=== PATIENT | female | born 1960 | race Caucasian/White ===

== ENCOUNTER 2021-05-29 12:01 | Emergency (ER) | payer OTHER, SELFPAY ==
[2021-05-29 12:13] VITALS: BMI 24.2
--- NOTE | 2021-05-29 12:17 | DI.RAD.S_ITS ---
PROCEDURE: XR TOE LT MIN 2V INDICATIONS: fall TECHNIQUE: 3 views of the left toe(s) acquired. COMPARISON: [facility], CR, XR ANKLE RT MIN 3V, 05/29/2021, 12:18. FINDINGS: Bones: There is a moderately displaced, comminuted fracture of the proximal aspect of the proximal phalanx of the great toe, with intra-articular involvement. No additional fracture dislocation can be seen. Soft tissues: No suspicious soft tissue densities. IMPRESSION: Comminuted, intra-articular fracture of the proximal aspect of the proximal phalanx of the great toe. Dictated by: Michael Brock M.D. on 05/29/2021 at 11:45 Approved by: Michael Brock M.D. on 05/29/2021 at 11:46
[2021-05-29 12:18] VITALS: BP 126/68; PULSE 69; RESP 16; TEMP 37.1; O2SAT 100; BMI 24.2
--- NOTE | 2021-05-29 12:18 | DI.RAD.S_ITS ---
PROCEDURE: XR ANKLE RT MIN 3V INDICATIONS: fall TECHNIQUE: 3 views of the ankle were acquired. COMPARISON: [facility], CR, XR TOE LT MIN 2V, 05/29/2021, 12:18. FINDINGS: Bones: There is a mildly displaced, intra-articular fracture seen involving the distal aspect of the fibula, with the fracture line seen at and below the level of the syndesmosis. The ankle mortise appears mildly widened. The syndesmosis is believed to be mildly widened. The talar dome demonstrates no chandu abnormality. Soft tissues: Soft tissue swelling is seen, particularly laterally. IMPRESSION: Distal fibular fracture, with associated widening of the syndesmosis and ankle mortise and associated soft tissue swelling. Dictated by: Michael Brock M.D. on 05/29/2021 at 11:46 Approved by: Michael Brock M.D. on 05/29/2021 at 11:48
--- NOTE | 2021-05-29 14:08 | ED_ITS ---
HPI - Extremity Injury (Lower) General Chief Complaint: Extremity Injury, Lower Stated Complaint: LT BIG TOE BREAK/RT ANKLE SPRAIN Time Seen by Provider: 05/29/21 14:07 Source: patient Mode of arrival: Family Vehicle Limitations: no limitations History of Present Illness HPI Narrative: Patient is a 61-year-old female who is here for evaluation of a left big toe pain and also right ankle discomfort. This morning the patient was going up some stairs when she tripped and fell sustaining the injuries that brought her into the emergency department today. She was unable to ambulate afterwards because of the discomfort. She arrived in a wheelchair. She reports no other injuries from the event except for her left big toe in her right ankle. No interventions prior to arrival. Related Data Previous Rx's Medication Instructions Recorded hydrocodone 5 mg-acetaminophen 325 1 tab PO Q4-6H PRN #20 tab 05/29/21 mg tablet Allergies Allergy/AdvReac Type Severity Reaction Status Date / Time No Known Drug Allergies Allergy Verified 05/29/21 12:16 Review of Systems Constitutional Constitutional: Reports system reviewed and no additional complaints, except as documented Musculoskeletal Musculoskeletal: Reports system reviewed and no additional complaints, except as documented and Reports as per HPI Integumentary/Breasts Skin/Breast: Reports system reviewed and no additional complaints, except as documented and Reports as per HPI Neurologic Neurologic: Reports system reviewed and no additional complaints, except as documented Hematologic/Lymphatic On Anticoagulants: No Patient History Medical History Healthy adult Social History Smoking Status: Never smoker Smoking Status: Never smoker alcohol intake frequency: 0-2 drinks per day Substance Use Type: does not use Exam Initial Vital Signs Initial Vital Signs: Vital Signs Temperature 98.7 F 05/29/21 12:18 Pulse Rate 69 05/29/21 12:18 Respiratory Rate 16 05/29/21 12:18 Blood Pressure 126/68 05/29/21 12:18 Pulse Oximetry 100 05/29/21 12:18 Const General: cooperative and comfortable HENMT Head: normal to inspection and normocephalic Resp Effort & Inspection: normal respiratory effort Cardio Pulses: dorsalis pedis present bilaterally Neuro Sensory Exam: no sensory deficits noted Extrem Other: Patient's bilateral hips knees her all unremarkable. Her left ankle is unremarkable. Her left foot is unremarkable except for discomfort along the great toe. The rest of her toes unremarkable. No tenderness along the Achilles tendon. No tenderness along the medial and lateral malleolus. No tenderness along the 5th metatarsal. When her right ankle patient has tenderness along the lateral malleolus. No tenderness along the Achilles tendon. No tenderness along the medial malleolus. Her foot is unremarkable. Procedures Orthopedic Splinting/Casting Injury #1: Side: left Lower Extremity Injury Location: foot Lower Extremity Immobilizer: boot orthosis Other Orthopedic Equipment: crutches Post splinting neuro exam: intact Post splinting vascular exam: intact Placed by: Nursing Injury #2: Side: right Lower Extremity Injury Location: ankle Lower Extremity Immobilizer: boot orthosis Other Orthopedic Equipment: crutches Post splinting neuro exam: intact Post splinting vascular exam: intact Placed by: Nursing Course Orders Ordered: ED Orders 05/29/21 12:17 XR toe LT min 2V Stat 05/29/21 12:18 XR ankle RT min 3V Stat Discontinued Medications Hydrocodone Bitart/Acetaminophen (Hydrocodone/Acet 5/325 Tablet) 1 tab PO NOW ONE Stop: 05/29/21 14:09 Vital Signs Vital signs: Vital Signs - 8 hr 05/29/21 12:18 Temperature 98.7 F Pulse Rate 69 Respiratory Rate 16 Blood Pressure 126/68 Pulse Oximetry 100 MDM - Extremity Injury (Lower) Imaging Data Extremity x-ray #1: Radiologist's Impression: [address] [address] XRay Report Signed Patient: Lionel Peralta MR#: [id number] : 1960 Acct:[id number] Age/Sex: 61 / F Date of Service: 05/29/21 Loc: ED Accession Number: [id number] ?? Procedure: XR toe LT min 2V Ordering Provider: Everardo Trejo D.O. PROCEDURE:? XR TOE LT MIN 2V ? INDICATIONS:? fall ? TECHNIQUE:? 3 views of the left toe(s) acquired.? ? COMPARISON:? [facility], CR, XR ANKLE RT MIN 3V, 05/29/2021, 12:18. ? FINDINGS:? ? Bones:? There is a moderately displaced, comminuted fracture of the proximal aspect of the proximal phalanx of the great toe, with intra-articular involvement. ? No additional fracture dislocation can be seen. ? Soft tissues:? No suspicious soft tissue densities.? IMPRESSION:? Comminuted, intra-articular fracture of the proximal aspect of the proximal phalanx of the great toe. ? ? Dictated by: Michael Brock M.D. on 05/29/2021 at 11:45 ? ? Approved by: Michael Brock M.D. on 05/29/2021 at 11:46?? Extremity x-ray #2: Radiologist's Impression: [address] [address] XRay Report Signed Patient: Lionel Peralta MR#: [id number] : 1960 Acct:[id number] Age/Sex: 61 / F Date of Service: 05/29/21 Loc: ED Accession Number: [id number] ?? Procedure: XR ankle RT min 3V Ordering Provider: Everardo Trejo D.O. PROCEDURE:? XR ANKLE RT MIN 3V ? INDICATIONS:? fall ? TECHNIQUE:? 3 views of the ankle were acquired.? ? COMPARISON:? [facility], CR, XR TOE LT MIN 2V, 05/29/2021, 12:18. ? FINDINGS:? ? Bones:? There is a mildly displaced, intra-articular fracture seen involving the distal aspect of the fibula, with the fracture line seen at and below the level of the syndesmosis.? The ankle mortise appears mildly widened.? The syndesmosis is believed to be mildly widened. ? The talar dome demonstrates no chandu abnormality.? ? Soft tissues:? Soft tissue swelling is seen, particularly laterally. ? ? IMPRESSION:? Distal fibular fracture, with associated widening of the syndesmosis and ankle mortise and associated soft tissue swelling. ? Dictated by: Michael Brock M.D. on 05/29/2021 at 11:46 ? ? Approved by: Michael Brock M.D. on 05/29/2021 at 11:48?? MDM Narrative Medical decision making narrative: Patient is neurovascularly intact. She does have an isolated fibula fracture on the right. Also has a proximal phalanx fracture on the left great toe. I did discuss both these with the patient. Will provide an orthopedic boot for both of her lower extremities. Crutches for her comfort as well. We did discuss return precautions and follow-up instructions. She expressed understanding and agreement. Discharge Plan Departure Patient Disposition: Home Clinical Impression: Fibula fracture, Fracture of toe Instructions: How to Use Crutches, DI for Toe Fracture, How to Use a Walking Boot, Fibula Shaft Fracture Activity Restrictions/Additional Instructions: You can take the boot off to shower and also to keep your ankles elevated and also use ice. The crutches for your comfort. You can walk on your right lower extremity. An isolated fibula fracture does not require you to be nonweightbearing. You do need follow-up with Orthopedics. You can contact an orthopedic provider when you return home or contact the provider at the number provided below. Return to the emergency department for any new or worsening symptoms Prescriptions: New hydrocodone-acetaminophen 5-325 mg tablet 1 tab PO Q4-6H PRN (Reason: pain) Qty: 20 0RF Referrals: Charlene Arnold MD [Physician] -
[2021-05-29] MEDS: HYDROCODONE/ACET 5/325 TABLET 1 TAB PO (14:34)
== END 2021-05-29 15:58 | disposition home or self-care (01) ==
PROVIDERS: Emergency Provider Emergency Medicine
DX: S82.831A Other fracture of upper and lower end of right fibula, initial encounter for closed fracture (principal); S92.412A Displaced fracture of proximal phalanx of left great toe, initial encounter for closed fracture; W01.0XXA Fall on same level from slipping, tripping and stumbling without subsequent striking against object, initial encounter
CPT/HCPCS: 73610; 73660; 99283